=== PATIENT | male | born 1950 | race Caucasian/White ===

== ENCOUNTER 2024-10-10 09:59 | Emergency (ER) | payer SELFPAY ==
[2024-10-10 10:04] VITALS: BP 122/67
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
== END 2024-10-10 10:47 | disposition home or self-care (01) ==
LOC: EMR 09:59
PROVIDERS: EMERGENCY PHYSICIAN Emergency Medicine
DX: S51.012A Laceration without foreign body of left elbow, initial encounter (principal); V43.52XA Car driver injured in collision with other type car in traffic accident, initial encounter
CPT/HCPCS: 99282